=== PATIENT | female | born 1980 | race Caucasian/White ===

== ENCOUNTER 2021-02-09 08:00 | Outpatient (RCR) | payer OTHER, SELFPAY | END 2021-02-28 17:00 | disposition home or self-care (01) | LOC: PT.CARL 08:00 | PROVIDERS: Visit Provider Physician Assistant | DX: M70.61 Trochanteric bursitis, right hip (principal); G57.01 Lesion of sciatic nerve, right lower limb | CPT/HCPCS: 97010; 97012; 97014; 97033; 97110; 97140; 97163; G0283 ==

== ENCOUNTER 2025-05-08 08:41 | Outpatient (CLI) | payer OTHER, SELFPAY ==
--- OUTSIDE RECORDS SUMMARY | 2025-05-04 09:16 | XMS_ITS | Encounter Summary ---
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 Get plenty of rest over the next few days. Follow-up with primary care and schedule appointment with orthopedics for further evaluation if symptoms persist. Return to the ER with new or worsening symptoms. * Attachments The following attachments cannot be sent through Care Everywhere. * Cervical Radiculopathy Zpsi-fm-[id number] (Belgian) documented in this encounter Medications at Time of Discharge ibuprofen (MOTRIN) 600 MG tablet Take 1 [...] needed for muscle spasms. 30 tablet 05/04/2025 documented as of this encounter ED Notes [...] way to her hand. Also feels her lead furnace operator strength on the affected side has decreased. Denies any traumatic injury to the area. No numbness in the hand or fingers. History provided by: Patient interpretative dancer used: No Patient History Past Medical History: [...] 0952 Dr. Kumar: I saw the patient [id number]. I performed a substantive portion of the [...] NP Specialty: Nurse Practitioner Relationship: PCP - [place] [address] Next Steps: Schedule an appointment as soon as possible for a visit Dennys Carrera MD Specialty: Orthopedic Surgery [facility] [place] [address] Next Steps: Schedule an appointment as soon [...] discontinued) documented in this encounter Care Teams Clock Maker Relationship Specialty Start Date End Date Mehreen Ayala, ALEA [facility] [place] [address] PCP - General Nurse Practitioner 05/04/25 documented as of this encounter
--- OUTSIDE RECORDS SUMMARY | 2025-05-08 08:44 | XMS_ITS | Referral Summary ---
Author Organization [employer] ([place], [place], [place], [place]) Address [address] [place] [address] Care Team Providers Care Coffee Break Attendant Name Role Phone Mehreen Ayala NP Primary Care Provider Encounters Date Type Department Care Team Description 05/04/2025 Travel 05/04/2025 9:16 AM EDT - 05/04/2025 10:50 AM EDT Emergency [facility] Emergency Department [address] [place] [phone] Jenifer Kumar MD Neck pain (Primary Dx); Cervical radiculopathy Discharge Disposition: Home or Self Care from Last 3 Months Allergies No known active allergies Medications ibuprofen (MOTRIN) 600 MG tablet Take 1 tablet (600 mg total) by mouth every 6 (six) hours as needed for pain for up to 10 days. 40 tablet 05/04/2025 05/14/20 25 Active methocarbamoL (ROBAXIN) 500 MG tablet Take 1 tablet (500 mg total) by mouth 4 (four) times daily as needed for muscle spasms. 30 tablet 05/04/2025 Active lidocaine (LIDODERM) 5 % ptmd patch Place 1 patch on the skin daily for 30 days Remove & Discard patch within 12 hours or as directed by . 30 patch 05/04/2025 06/03/20 25 Active Social History Tobacco Use Types Packs/Day Years [...] on file Sexual Orientation Not on file Last Filed Vital Signs Vital Sign Reading [...] Mass Index 32.92 05/04/2025 9:21 AM EDT Plan of Treatment Not on file Insurance [employer] Care Teams Coffee Break Attendant Relationship Specialty Start Date End Date Mehreen Ayala, ALEA [address] [place] [address] PCP - General Nurse Practitioner 05/04/25
--- OUTSIDE RECORDS SUMMARY | 2025-05-08 08:44 | XMS_ITS | Encounter Summary ---
Author Organization [employer] ([place], [place], [place], [place]) Address [address] [place] [address] Care Team Providers Care Kier Pleater Name Role Phone Mehreen Ayala NP Primary Care Provider Encounter Details Date Type Department Care Team (Latest Contact Info) Description 05/04/2025 Travel Social History Tobacco Use Types Packs/Day Years Used Date Smoking Tobacco: Never Smokeless Tobacco: Never Alcohol Use Standard Drinks/Week Comments Never 0 (1 standard drink = 0.6 oz pur e alcohol) Comments Unknown Sex and Gender Information Value Date Recorded Sex Assigned at Not on file Legal Sex Female 5:47 PM CDT Gender Identity Not on file Sexual Orientation Not on file documented as of this encounter Plan of Treatment Not on file documented as of this encounter Visit Diagnoses Not on filedocumented in this encounter Care Teams Kier Pleater Relationship Specialty Start Date End Date Mehreen Ayala, ALEA [address] [place] [address] PCP - General Nurse Practitioner 05/04/25 documented as of this encounter
--- OUTSIDE RECORDS SUMMARY | 2025-05-08 08:44 | XMS_ITS | Clinical Summary ---
Author Organization [employer] ([place], [place], [place], [place]) Address [address] [place] [address] Care Team Providers Care Hosiery Looper Name Role Phone Mehreen Ayala NP Primary Care Provider Allergies No known active allergies Medications ibuprofen [...] . 30 patch 05/04/2025 06/03/20 25 Active Encounters Date Type Department Care Team Description 05/04/2025 9:16 AM EDT - 05/04/2025 10:50 AM EDT Emergency [facility] Emergency Department [address] [place] [phone] Jenifer Kumar MD Neck pain (Primary Dx); Cervical radiculopathy Discharge Disposition: Home or Self Care 05/04/2025 Travel from Last 3 Months Social History Tobacco Use Types Packs/Day Years [...] 05/04/2025 9:21 AM EDT Plan of Treatment Health Maintenance Due Date Last Done Comments CT Colonography 1978 Colonoscopy 1978 Colorectal Cancer Screening 1978 FOBT/FIT 1978 Fit-DNA (Cologuard) 1978 Sigmoidoscopy 1978 Depression Screening (12+) 1990 HIV Screening 1993 Hepatitis C Screening 02/10/1996 DTAP/TDAP/TD VACCINES (1 - Tdap) 1997 Pap Smear 1999 Breast Cancer Screening 2018 Lipid Panel 2023 COVID-19 VACCINE (1 - 2023-2 5 season) 2025 Influenza Vaccine (#1) 2025 Tobacco Cessation Counseling and Screening (12+) 05/04/2026 05/04/2025 Pneumococcal Vaccine: 0-49 Years Aged Out No longer eligible based on patient's age to complete this topic Insurance AET[employer] Care Teams Hosiery Looper Relationship Specialty Start Date End Date Mehreen Ayala, ALEA [address] [place] [address] PCP - General Nurse Practitioner 05/04/25
--- NOTE | 2025-05-08 08:47 | XR_ITS ---
FINAL REPORT CLINICAL HISTORY: right neck and arm pain with numbness in finger tips COMPARISON: None FINDINGS: 5 views of the cervical spine were obtained. No fracture is present. Alignment is normal. No prevertebral soft tissue swelling is seen. There is mild disc space narrowing at C5-6 and C6-7. IMPRESSION: Degenerative changes without acute bony abnormality. Reviewed, Interpreted and Dictated by Margy Vareal MD Transcribed by Neelima Agosto Authenticated and [facility]
== END 2025-05-08 23:59 | disposition home or self-care (01) ==
LOC: RAD 08:42
PROVIDERS: PCP Family Medicine; Visit Provider Family Medicine
DX: M47.812 Spondylosis without myelopathy or radiculopathy, cervical region (principal)
CPT/HCPCS: 72040

== ENCOUNTER 2025-05-22 13:31 | Outpatient (CLI) | payer OTHER, SELFPAY ==
--- OUTSIDE RECORDS SUMMARY | 2025-05-04 09:16 | XMS_ITS | Encounter Summary ---
Author Organization [employer] ([place], [place], [place], [place]) Address [address] [place] [address] Care Team Providers Care Video Game Repair Technician Name Role Phone Mehreen Ayala NP Primary Care Provider Reason for Visit * Reason Comments Neck Pain Left sided neck and arm pain pt describes as a pulled muscle or pinched nerve. Pt states she has to keep her arm above her head for pain relief. Encounter Details Date Type Department Care Team (Late st Contact Info) Description 05/04/2025 9:16 AM EDT - 05/04/2025 10:50 AM EDT Emergency [facility] Emergency Department [address] [place] [phone] Jenifer Kumar MD [address] [place] [address] Neck pain (Primary Dx); Cervical radiculopathy Discharge Disposition: Home or Self Care Social History Tobacco Use Types Packs/Day Years Used Date Smoking Tobacco: Never Smokeless Tobacco: Never Tobacco Cessation:Counseling Given: No Alcohol Use Standard Drinks/Week Comments Never 0 (1 standard drink = 0.6 oz pur e alcohol) Comments Unknown Sex and Gender Information Value Date Recorded Sex Assigned at Not on file Legal Sex Female 5:47 PM CDT Gender Identity Not on file Sexual Orientation Not on file documented as of this encounter Last Filed Vital Signs Vital Sign Reading Time Taken Comments Blood Pressure 164/82 05/04/2025 9:21 AM EDT Pulse 98 05/04/2025 9:21 AM EDT Temperature 35.7 C (96.2 F) 05/04/2025 9:21 AM EDT Respiratory Rate 16 05/04/2025 9:21 AM EDT Oxygen Saturation 98% 05/04/2025 9:23 AM EDT Inhaled Oxygen Concentration - - Weight 81.6 kg (180 lb) 05/04/2025 9:21 AM EDT Height 157.5 cm (5' 2 ) 05/04/2025 9:21 AM EDT Body Mass Index 32.92 05/04/2025 9:21 AM EDT documented in this encounter Discharge Instructions * Discharge Instructions* NIK Varags - 05/04/2025 10:30 AM EDT 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 Get plenty of rest over the next few days. Follow-up with primary care and schedule appointment with orthopedics for further evaluation if symptoms persist. Return to the ER with new or worsening symptoms. * Attachments The following attachments cannot be sent through Care Everywhere. * Cervical Radiculopathy [id number]-[id number] (Namibian) documented in this encounter Medications at Time of Discharge lidocaine (LIDODERM) 5 % ptmd patch Place 1 patch on the skin daily for 30 days Remove & Discard patch within 12 hours or as directed by MD. 30 patch 05/04/2025 06/03/2025 methocarbamoL (ROBAXIN) 500 MG tablet Take 1 tablet (500 mg total) by mouth 4 (four) times daily as needed for muscle spasms. 30 tablet 05/04/2025 ibuprofen (MOTRIN) 600 MG tablet Take 1 tablet (600 mg total) by mouth every 6 (six) hours as needed for pain for up to 10 days. 40 tablet 05/04/2025 05/14/2025 documented as of this encounter ED Notes * NIK Vargas - 05/04/2025 9:28 AM EDT Subjective Chief Complaint: Neck Pain (Left sided neck and arm pain pt describes as a pulled muscle or pinchednerve. Pt states she has to keep her arm above her head for pain relief. ) Patient is a 45-year-old female who presents with complaint of pain in the left side of her neck radiating to the shoulder and arm. States symptoms have been ongoing for the past 3 days and have continued to worsen. Says she went out of town and slept in a very uncomfortable bed. The next day she started experiencing symptoms. Says now she is only able to find relief when raising her left arm above her head. When putting the arm down in normal position she has sharp shooting pains all the way to her hand. Also feels her percussion instructor strength on the affected side has decreased. Denies any traumatic injury to the area. No numbness in the hand or fingers. History provided by: Patient package crimper used: No Patient History Past Medical History: Diagnosis Date Patient denies medical problems Past Surgical History: Procedure Laterality Date CHOLECYSTECTOMY No family history on file. Social History Tobacco Use Smoking status: Never Smokeless tobacco: Never Substance Use Topics Alcohol use: Never I reviewed the HPI, ROS and PFSH documentation recorded by others in the medical record and supplemented my note as needed. Review of Systems Review of Systems Constitutional: Negative for chills and fever. HENT: Negative for congestion, ear pain, postnasal drip, rhinorrhea, sinus pain and sore throat. Eyes: Negative for pain, redness and visual disturbance. Respiratory: Negative for cough, shortness of breath and wheezing. Cardiovascular: Negative for chest pain and palpitations. Gastrointestinal: Negative for abdominal pain, constipation, diarrhea, nausea and vomiting. Genitourinary: Negative for difficulty urinating, dysuria and hematuria. Musculoskeletal: Positive for myalgias and neck pain. Negative for arthralgias, back pain and neck stiffness. Skin: Negative for rash. Neurological: Negative for light-headedness and headaches. All other systems reviewed and are negative. Physical Exam ED Triage Vitals [05/04/25 0921] Encounter Vitals Group BP (!) 164/82 Girls Systolic BP Percentile Girls Diastolic BP Percentile Boys Systolic BP Percentile Boys Diastolic BP Percentile Pulse 98 Resp 16 Temp 96.2 ??F (35.7 ??C) Temp src Tympanic SpO2 98 % Weight 81.6 kg (180 lb) Height 1.575 m (5' 2 ) Head Circumference Peak Flow Pain Score Seven Pain Loc Pain Education Exclude from Growth Chart Physical Exam Vitals and nursing note reviewed. Constitutional: Appearance: Normal appearance. HENT: Head: Atraumatic. Nose: Nose normal. Eyes: Extraocular Movements: Extraocular movements intact. Pupils: Pupils are equal, round, and reactive to light. Neck: Comments: Spasm of the left trapezius Cardiovascular: Rate and Rhythm: Normal rate and regular rhythm. Pulses: Normal pulses. Heart sounds: Normal heart sounds. Pulmonary: Effort: Pulmonary effort is normal. Breath sounds: Normal breath sounds. Abdominal: General: Bowel sounds are normal. Palpations: Abdomen is soft. Tenderness: There is no abdominal tenderness. Musculoskeletal: General: Tenderness (left upper arm/axilla) present. Normal range of motion. Cervical back: Full passive range of motion without pain and normal range of motion. Skin: General: Skin is warm and dry. Capillary Refill: Capillary refill takes less than 2 seconds. Neurological: Mental Status: She is alert and oriented to person, place, and time. Mental status is at baseline. Cranial Nerves: No cranial nerve deficit. Sensory: No sensory deficit. Coordination: Coordination normal. Psychiatric: Mood and Affect: Mood normal. Behavior: Behavior normal. Neurological Exam Mental Status Alert. Oriented to person, place, and time. Cranial Nerves CN III, IV, : Extraocular movements intact bilaterally. Pupils equal round and reactive to light bilaterally. Ortho Exam ED Course & MDM Medications lidocaine (LIDODERM) patch 4% (1 patch transdermal Patch Applied 05/04/25 09) diazePAM (VALIUM) tablet 5 mg (5 mg oral Given 05/04/25 0953) ketorolac (TORADOL) injection 30 mg (30 mg intraMUSCULAR Given 05/04/25 0952) dexAMETHasone PF injection 10 mg (10 mg intraMUSCULAR Given 05/04/25 0952) No results found for this or any previous visit. No orders to display ED Course as of 05/04/25 1032 Mon May 04, [address] Kumar: I saw the patient [id number]. I performed a substantive portion of the MDM. My differential diagnosis includes vascular injury, nerve compression, and infection. 2+ radial pulse [KH] ED Course User Index [KH] Jenifer Kumar MD Procedures Medical Decision Making Patient presented with complaint of left-sided neck pain with radiation through the left upper extremity. No imaging indicated at this time as there is been no evidence of traumatic injury and no sign of infection. Patient given medications for symptomatic management and did report improvement of symptoms prior to discharge. Will continue to treat with medications on an outpatient basis and instructed patient to follow-up with PCP and orthopedics. She verbalized understanding and approval of plan to discharge. Risk OTC drugs. Prescription drug management. Assessment & Plan Clinical Impression Diagnosis Comment Added By Time Added Neck pain NIK Vargas 05/04/2025 10:27 AM Cervical radiculopathy NIK Vargas 05/04/2025 10:27 AM Disposition Discharge [1] - 05/04/2025 10:27 AM New Prescriptions IBUPROFEN (MOTRIN) 600 MG TABLET Take 1 tablet (600 mg total) by mouth every 6 (six) hours as needed for pain for up to 10 days. LIDOCAINE (LIDODERM) 5 % PTMD PATCH Place 1 patch on the skin daily for 30 days Remove & Discard patch within 12 hours or as directed by MD. METHOCARBAMOL (ROBAXIN) 500 MG TABLET Take 1 tablet (500 mg total) by mouth 4 (four) times daily asneeded for muscle spasms. Contact information for follow-up Mehreen Ayala NP Specialty: Nurse Practitioner Relationship: PCP - [place] [phone] Next Steps: Schedule an appointment as soon as possible for a visit Dennys Carrera MD Specialty: Orthopedic Surgery [facility] [place] [address] Next Steps: Schedule an appointment as soon as possible for a visit documented in this encounter Plan of Treatment Not on file documented as of this encounter Visit Diagnoses Diagnosis Neck pain- Primary Cervicalgia Cervical radiculopathy Brachial neuritis or radiculitis nos documented in this encounter Administered Medications Inactive Administered Medications - up to 3 most recent administrations Medication Order MAR Action Action Date Dose Rate Site dexAMETHasone PF injection 10 mg 10 mg Once, intraMUSCULAR, On Mon 25 at 0940, For 1 dose Given 05/04/2025 9:52 AM EDT 10 mg Left Deltoid diazePAM (VALIUM) tablet 5 mg 5 mg Once, oral, On Sun05/04/25 at 0940, For 1 dose Given 05/04/2025 9:53 AM EDT 5 mg ketorolac (TORADOL) injection 30 mg 30 mg Once, intraMUSCULAR, On Sun05/04/25 at 0940, For 1 dose Given 05/04/2025 9:52 AM EDT 30 mg Right Deltoid lidocaine (LIDODERM) patch 4% 1 patch Once, transdermal, Administer over 12 Hours, On Sun05/04/25 at 0940, For 1 dose Patch Applied 05/04/2025 9:52 AM EDT 1 patch documented in this encounter Active and Recently Administered Medications Times are shown in EDT. Scheduled Medication Order 05/02/2025 05/03/2025 05/04/2025 dexAMETHasone PF injection 10 mg (COMPLETED) 10 mg Once, intraMUSCULAR, On Sun05/04/25 at 0940, For 1 dose 0952 (Given - Provid er: Lourdes Sosa RN) diazePAM (VALIUM) tablet 5 mg (COMPLETED) 5 mg Once, oral, On Sun05/04/25 at 0940, For 1 dose 0953 (Given - Provid er: Lourdes Sosa RN) ketorolac (TORADOL) injection 30 mg (COMPLETED) 30 mg Once, intraMUSCULAR, On Sun05/04/25 at 0940, For 1 dose 0952 (Given - Provid er: Lourdes Sosa RN) lidocaine (LIDODERM) patch 4% 1 patch Once, transdermal, Administer over 12 Hours, On Sun05/04/25 at 0940, For 1 dose 0952 (Patch Applied - Provider: Lourdes Sosa RN)1050 (Due: Patch Removed - Provider: Automatic Discharge Provider - Comment: Time automatically adjusted from order being discontinued) documented in this encounter Care Teams Video Game Repair Technician Relationship Specialty Start Date End Date Mehreen Aayla, ALEA [facility] [place] [address] PCP - General Nurse Practitioner 05/04/25 documented as of this encounter
--- OUTSIDE RECORDS SUMMARY | 2025-05-22 13:34 | XMS_ITS | Encounter Summary ---
Author Organization [employer] ([place], [place], [place], [place]) Address [address] [place] [address] Care Team Providers Care Engineering Inspector Name Role Phone Mehreen Ayala NP Primary [...] on filedocumented in this encounter Care Teams Engineering Inspector Relationship Specialty Start Date End Date Mehreen Ayala, ALEA [address] [place] [address] PCP - General Nurse Practitioner 05/04/25 documented as of this encounter
--- OUTSIDE RECORDS SUMMARY | 2025-05-22 13:34 | XMS_ITS | Referral Summary ---
Author Organization [employer] ([place], [place], [place], [place]) Address [address] [place] [address] Care Team Providers Care Axminster Weaver Name Role Phone Mehreen Ayala NP Primary Care Provider Encounters Date Type Department Care Team Description 05/04/2025 Travel 05/04/2025 9:16 AM EDT - 05/04/2025 10:50 AM EDT Emergency [facility] Emergency Department [address] [place] [phone] Jenifer Kumar MD Neck pain (Primary Dx); Cervical radiculopathy Discharge Disposition: Home or Self Care from Last 3 Months Allergies No known active allergies Medications methocarbamoL (ROBAXIN) 500 MG tablet Take 1 tablet (500 mg total) by mouth 4 (four) times daily as needed for muscle spasms. 30 tablet 5 Active lidocaine (LIDODERM) 5 % ptmd patch Place 1 patch on the skin daily for 30 days Remove & Discard patch within 12 hours or as directed by . 30 patch 5 06/03/20 25 Active ibuprofen (MOTRIN) 600 MG tablet Take 1 tablet (600 mg total) by mouth every 6 (six) hours as needed for pain for up to 10 days. 40 tablet 5 05/14/20 25 Social History Tobacco Use Types Packs/Day Years [...] Not on file Insurance [employer] Care Teams Axminster Weaver Relationship Specialty Start Date End Date Mehreen Ayala, ALEA [address] [place] [address] PCP - General Nurse Practitioner 05/04/25
--- OUTSIDE RECORDS SUMMARY | 2025-05-22 13:35 | XMS_ITS | Clinical Summary ---
Author Organization [employer] ([place], [place], [place], [place]) Address [address] [place] [address] Care Team Providers Care Gem Cutter Name Role Phone Mehreen Ayala NP Primary Care Provider Allergies No known active allergies Medications methocarbamoL (ROBAXIN) 500 MG tablet Take 1 tablet (500 mg total) by mouth 4 (four) times daily as needed for muscle spasms. 30 tablet 5 Active lidocaine (LIDODERM) 5 % ptmd patch Place 1 patch on the skin daily for 30 days Remove & Discard patch within 12 hours or as directed by MD. 30 patch 5 06/03/20 25 Active ibuprofen (MOTRIN) 600 MG tablet Take 1 tablet (600 mg total) by mouth every 6 (six) hours as needed for pain for up to 10 days. 40 tablet 5 05/14/20 25 Encounters Date Type Department Care Team Description 05/04/2025 9:16 AM EDT - 05/04/2025 10:50 AM EDT Emergency [facility] Emergency Department [address] [place] [phone] Jenifer Kumar MD Neck pain (Primary Dx); [...] complete this topic Insurance [employer] Care Teams Gem Cutter Relationship Specialty Start Date End Date Mehreen Ayala, ALEA [address] [place] [address] PCP - General Nurse Practitioner 05/04/25
--- NOTE | 2025-05-22 13:45 | MR_ITS ---
FINAL REPORT TECHNIQUE: Multiplanar and multisequence imaging of the cervical spine was obtained before and after the administration of intravenous contrast. CLINICAL HISTORY: Neck pain with left arm pain, numbness, and tingling 3 weeks COMPARISON: None FINDINGS: There is normal alignment of the cervical vertebral bodies. Vertebral body height is preserved. Bone marrow signal intensity is normal. There is no edema or pathologic marrow replacement. The signal intensity within the substance of the spinal cord is normal. There is no paraspinal mass or fluid collection. There is no abnormal bone marrow enhancement and no abnormal cord enhancement. C2-C3: There is no focal disc herniation, central stenosis or neural foraminal narrowing. C3-C4: There is no focal disc herniation, central stenosis or neural foraminal narrowing. C4-C5: There is a central protrusion with mild mass effect upon the anterior thecal sac. Mild central stenosis. No foraminal narrowing. C5-C6: There is a right paracentral protrusion per imposed on an annular disc bulge. There are degenerative endplate changes. There is facet osteoarthropathy. No central stenosis. Mild bilateral foraminal narrowing. C6-C7: There is a large central and left paracentral disc protrusion. There is mild to moderate central stenosis with severe left foraminal narrowing. There is contact with the exiting left nerve root. C7-T1: There is no focal disc herniation, central stenosis or neural foraminal narrowing. Postcontrast images reveal no pathologic contrast enhancement. IMPRESSION: Large central and left paracentral disc protrusion at C6-7 with central and severe left foraminal stenosis. Central protrusion at C4-5. Right paracentral protrusion at C5-6. Reviewed, Interpreted and Dictated by Aleisha Vivas MD Transcribed by Daisy Gipson Authenticated and . [facility]
[2025-05-22] MEDS: GADOTERIDOL INJ 20ML SYRINGE 16 ML IV (14:20)
== END 2025-05-22 23:59 | disposition home or self-care (01) ==
LOC: RAD 13:32
PROVIDERS: PCP Nurse Practitioner Family; Visit Provider Nurse Practitioner Family
DX: M50.221 Other cervical disc displacement at C4-C5 level (principal); M50.222 Other cervical disc displacement at C5-C6 level; M50.223 Other cervical disc displacement at C6-C7 level; M48.02 Spinal stenosis, cervical region
CPT/HCPCS: 72156; A9576

== ENCOUNTER 2025-06-08 08:20 | Outpatient (CLI) | payer OTHER, SELFPAY ==
--- OUTSIDE RECORDS SUMMARY | 2025-05-04 09:16 | XMS_ITS | Encounter Summary ---
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 Get plenty of rest over the next few days. Follow-up with primary care and schedule appointment with orthopedics for further evaluation if symptoms persist. Return to the ER with new or worsening symptoms. * Attachments The following attachments cannot be sent through Care Everywhere. * Cervical Radiculopathy [id number] (Maltese) documented in this encounter Medications at Time of Discharge methocarbamoL (ROBAXIN) 500 MG tablet Take 1 tablet (500 mg total) by mouth 4 (four) times daily as needed for muscle spasms. 30 tablet 05/04/2025 ibuprofen (MOTRIN) 600 MG tablet Take 1 tablet (600 mg total) by mouth every 6 (six) hours as needed for pain for up to 10 days. 40 tablet 05/04/2025 05/14/2025 lidocaine (LIDODERM) 5 % ptmd patch Place 1 patch on the skin daily for 30 days Remove & Discard patch within 12 hours or as directed by MD. 30 patch 05/04/2025 06/03/2025 documented as of this encounter ED Notes [...] way to her hand. Also feels her asbestos wire finisher strength on the affected side has decreased. Denies any traumatic injury to the area. No numbness in the hand or fingers. History provided by: Patient loss prevention officer used: No Patient History Past Medical History: [...] 0952 Dr. Kumar: I saw the patient [id number]. I performed a substantive portion of the [...] NP Specialty: Nurse Practitioner Relationship: PCP - [place] [address] Next Steps: Schedule an appointment as soon as possible for a visit Dennys Carrera MD Specialty: Orthopedic Surgery [facility] [place] [address] Next Steps: Schedule an appointment as soon [...] discontinued) documented in this encounter Care Teams Creative Consultant Relationship Specialty Start Date End Date Mehreen Ayala, [place] [address] PCP - General Nurse Practitioner 05/04/25 documented as of this encounter
--- NOTE | 2025-06-08 08:30 | MM_ITS ---
PROCEDURE INFORMATION: Exam: MG Bilateral Screening 3D Mammography Exam date and time: 06/08/2025 8:31 AM Age: 45 years old Clinical indication: Screening exam. TECHNIQUE: Imaging protocol: Bilateral Screening tomosynthesis and 2D mammography including computer-aided detection (CAD) when performed. COMPARISON: No relevant prior studies available. FINDINGS: MAMMOGRAPHY: Breast composition: The breasts are heterogeneously dense, which may obscure small masses. Mass: No suspicious masses. Architectural distortion: None. Calcifications: No suspicious calcifications. Asymmetric density: None. Skin thickening: None. Axillary adenopathy: None. IMPRESSION: No mammographic evidence of malignancy. Annual screening is recommended unless otherwise clinically indicated. ASSESSMENT: BI-RADS Category 1: Negative.
--- OUTSIDE RECORDS SUMMARY | 2025-06-08 08:32 | XMS_ITS | Encounter Summary ---
Author Organization [employer] ([place], [place], [place], [place]) Address [address] [place] [address] Care Team Providers Care Drier Helper Name Role Phone Mehreen Ayala NP Primary [...] on filedocumented in this encounter Care Teams Drier Helper Relationship Specialty Start Date End Date Mehreen Ayala, ALEA [address] [place] [address] PCP - General Nurse Practitioner 05/04/25 documented as of this encounter
--- OUTSIDE RECORDS SUMMARY | 2025-06-08 08:32 | XMS_ITS | Referral Summary ---
Author Organization [employer] ([place], [place], [place], [place]) Address [address] [place] [address] Care Team Providers Care Tray Drier Operator Name Role Phone Mehreen Ayala NP Primary Care Provider Encounters Date Type Department Care Team Description 05/04/2025 Travel 05/04/2025 9:16 AM EDT - 05/04/2025 10:50 AM EDT Emergency [facility] Emergency Department [address] [place] [phone] Jenifer Kumar MD Neck pain (Primary Dx); Cervical radiculopathy Discharge Disposition: Home or Self Care from Last 3 Months Allergies No known active allergies Medications methocarbamoL (ROBAXIN) 500 MG tablet Take 1 tablet (500 mg total) by mouth 4 (four) times daily as needed for muscle spasms. 30 tablet 5 Active ibuprofen (MOTRIN) 600 MG tablet Take 1 tablet (600 mg total) by mouth every 6 (six) hours as needed for pain for up to 10 days. 40 tablet 5 05/14/20 25 lidocaine (LIDODERM) 5 % ptmd patch Place 1 patch on the skin daily for 30 days Remove & Discard patch within 12 hours or as directed by . 30 patch 5 06/03/20 25 Social History Tobacco Use Types Packs/Day [...] Not on file Insurance [employer] Care Teams Tray Drier Operator Relationship Specialty Start Date End Date Mehreen Ayala, ALEA [address] [place] [address] PCP - General Nurse Practitioner 05/04/25
--- OUTSIDE RECORDS SUMMARY | 2025-06-08 08:34 | XMS_ITS | Clinical Summary ---
Author Organization [employer] ([place], [place], [place], [place]) Address [address] [place] [address] Care Team Providers Care Contract Clerk Automobile Name Role Phone Mehreen Ayala NP Primary [...] by . 30 patch 5 06/03/20 25 Encounters Date Type Department Care Team Description 05/04/2025 9:16 AM EDT - 05/04/2025 10:50 AM EDT Emergency [facility] Emergency Department [address] [place] [phone] Jenifer Kumar MD Neck pain (Primary Dx); [...] complete this topic Insurance [employer] Care Teams Contract Clerk Automobile Relationship Specialty Start Date End Date Mehreen Ayala, ALEA [address] [place] [address] PCP - General Nurse Practitioner 05/04/25
== END 2025-06-08 23:59 | disposition home or self-care (01) ==
LOC: RAD 08:21
PROVIDERS: PCP Nurse Practitioner Family; Visit Provider Nurse Practitioner Family
DX: Z12.31 Encounter for screening mammogram for malignant neoplasm of breast (principal); R92.333 Mammographic heterogeneous density, bilateral breasts
CPT/HCPCS: 77063; 77067

== ENCOUNTER 2025-06-09 07:00 | Outpatient (RCR) | payer OTHER, SELFPAY ==
--- NOTE | 2025-05-21 08:56 | HMH.PTOPEV ---
PT Evaluation Rehab PT Outpatient Evaluation Start: 05/21/25 07:55 Freq: Status: Active Protocol: Document 05/21/25 07:55 [email or web address] (Rec: 05/21/25 08:55 [email or web address] [id number]) E-signed By Tonny Rowe, PT Outpatient Therapy Subjective History Subjective History Pt. is a 45 year old female who presents to [facility] Outpatient Physical Therapy Services in [place] for the PT outpatient initial evaluation this date(10/14) w/ c/o acute and constant cervical spine and L UE P!, numbness, and stiffness of non-traumatic onset 3 weeks ago. Pt. reports she went on a trip and slept in a bed with terrible pillows as her GARY. Pt. reports the stiffness in the cervical spine is the worse in the a.m. getting out of bed. Pt. also c/o constant numbness in L UE 1st/2nd/3rd digits. Pt. 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 Pt. reports sitting and driving, sitting and looking down at her laptop or phone, and sleeping on her L side worsen symptom complaint. Pt. reports the only symptom relief she gets is when she lifts her L UE over her head. Pt. reports going to the [facility] 3 wks. ago w/ symptom onset where she was prescribed a muscle relaxer and got a steroid shot. Pt. reports having no symptom relief so she went to her PCP where she was prescribed x5 days of Prednisone and another muscle relaxer where she stated not really when Physical Therapist prompted pt. on symptom relief. Pt. reports having a radiograph of the cervical spine at the E.R[facility] which indicated WNL per pt. report. Pt. reports she is scheduled to have an MRI tomorrow(05/22/25) of the cervical spine. Pt. reports per MD at the [facility] and Family Doctor she has a pinched nerve in the neck. Pt. reports she has been seeing her Chiropractor everyday since symptom onset where she vocalizes having 1-3 hours of symptom relief following adjustments and manual techniques including massage and cervical distraction. Pt. RTMD after having the MRI. Current medications include prescribed muscle relaxer and Prednisone for current complaint of symptoms. PMH includes Cholecystectomy, broken my left arm three times, Scoliosis, and S/P L UE wrist ATS. New diagnosis of No cancer in past 12 months? Chief Complaint Pain,Spasms,Stiff,Paresthesia,Weakness,Decreased Garment Cutter Strength Symptom Type Ache,Throb,Stabbing,Numbness,Tingling,Shooting Symptoms Relieved By Rest/Positioning,Ice,Prescription Meds Symptoms Aggravated Sitting,Bending/Stooping,Physical Activity,Twisting, By Lifting Prior Functional None Limitations Current Functional Lifting,Desk Work/Reading,Driving,Sleeping,Sitting, Limitations Recreation Activity Symptom Description Constant and Continuous,Activity Dependent Level of pain today 5 (0-10) Pain scale - at its 3 best (0-10) Pain scale - at its 8 worst (0-10) Cervical Eval Palpation Cervical Muscles L Cervical Paraspinal,L CT Junction,L Upper Trapezius Posture Head/C-Spine Posture Flexed Sitting Position Head/C-Spine Posture Flexed Standing Position Flexibility Deficits Upper Trapezius (L) Severe Tightness Muscle Length Levaetor Scapulae (L) Severe Tightness Muscle Length Pectoralis Major (L) Severe Tightness Muscle Length Pectoralis Minor (L) Severe Tightness Muscle Length Passive Joint Mobility Cervical PIVM Dec: R C3/4 L C3/4 R C4/5 L C4/5 R C6/7 L C6/7 R C7/T1 L C7/T1 WNL: R OA L OA R AA L AA R C2/3 L C2/3 R C5/6 L C5/6 AROM Cervical Spine 43 Extension Active Range of Motion ( degrees) Cervical Spine 45 Flexion Active Range of Motion (degrees) Cervical Spine Right 23 Lateral Flexion Active Range of Motion (degrees) Cervical Spine Left 45 Lateral Flexion Active Range of Motion (degrees) Cervical Spine Right 47 Rotation Active Range of Motion ( degrees) Cervical Spine Left 45 Rotation Active Range of Motion ( degrees) MMT Left Deltoid (C5) 3+ Fair+ Biceps Brachii 4+ Good+ Strength Grade Wrist Extension 4 Good Strength Grade Triceps Brachii 3+ Fair+ Strength Grade Wrist Flexion 4 Good Strength Grade Extensor Pollicis 3+ Fair+ Longus Strength Grade Finger Abduction 3+ Fair+ Strength Grade Altered Sensation Bilateral Upper extremity C5,C6,C7 Dermatomes Comment pt. vocalized diminished light touch sensation of L UE compared to R UE Special Test C-Spine Foraminal Positive Left Compression ( [place]) Test C-spine Verterbral Central P/A [place],Left P/A [place] Accessory Movements that Elicit Symptoms C-Spine Foraminal Positive Distraction Test C-Spine Compression Positive Left Test Neck Disability Index Neck Disability Index Section 1: Pain The pain is very severe at the moment Intensity Section 2: Personal I need some help but can manage most of my personal Care (washing, care dressing, etc.) Section 3: Lifting I can only lift very light weights Section 4: Reading I can't read as much as I want because of moderate pain in my neck Section 5: Headaches I have moderate headaches, which come infrequently Section 6: I have a fair degree of difficulty in concentrating Concentration when I want to Section 7: Work I cannot do my usual work Section 8: Driving I can hardly drive at all because of severe pain in my neck Section 9: Sleeping My sleep is completely disturbed (5-7 hrs sleepless) Section 10: I can hardly do any recreation activities because of Recreation pain in my neck NDI Score 34 Outpatient Therapy Assessment Impairments Problems/ Palpation Tenderness,Impaired Range of Motion,Impaired Impairmments Strength,Impaired Endurance,Impaired Sitting,Impaired Driving,Impaired Lifting,Impaired Household Care, Impaired Bending,Impaired Recreational Activities, Impaired Work Activities,Impaired Desk/Computer Activities,Subjective C/O Pain,Impaired Self Care/Self Management Prognosis Rehab Potential Good Comment w/ HEP compliancy Clinical Impression Consistent with Yes Diagnosis Consistent with Cervical Radiculopathy, L PT Patient Goals PT Patient Goals PT Short Term STG#1.) Pt. will subjectively vocalize comparable P! a Patient Goals 5/10 @ worse in 2 wks. for improved QOL. STG#2.) Pt. will exhibit grade 2 +TTP to L upper trap. mm. in 2 wks. for improved sleep on her L side in bed. STG#3.) Pt. will demonstrate independency w/ initial HEP in 2 wks. for improved prognosis w/ Physical Therapy. PT Data Virtualization Consultant Patient LTG#1.) Pt. will exhibit grade 1 +TTP to L upper trap. Goals mm in 6-8 wks. to return to sleeping on her L side w/o difficulty. LTG#2.) Pt. will exhibit 4+/5 to L UE abd. MMT scores in 6-8 wks. to return to lifting laundry basket w/o difficulty. LTG#3.) Pt. will exhibit 45 degrees of cervical flexion ROM w/o P! in 6-8 wks. to return to working on her laptop for work w/o difficulty. LTG#4.) Pt. will demonstrate independency w/ advanced HEP in 6-8 wks. for optimal prognosis w/ Physical Therapy. LTG#5.) Pt. will exhibit a 10 degree improvement in R- sided cervical spine lateral flexion in 6-8 wks. to return looking over her R shoulder to pull out of her driveway safely. Outpatient Therapy Plan of Care Treatment Plan May Include Therapeutic Exercise Yes Including Home Exercise Program Manual Therapy Yes Techniques Neuromuscular Re- Yes education Therapeutic Yes Activities to Return to Previous Functional/Work Level ADL/Self Care Yes Education Mechanical Traction Yes Dry Needling Yes Thermal Modalities Yes Electrical Yes Stimulation Ultrasound/ Yes Phonophoresis Vasopneumatic Yes Compression Pump Massage Yes Eval/Re-Eval Yes Frequency Times per week 2 Duration Number of Weeks 6-8 Addendums This patient is a No candidate for social or vocational rehab ? Patient/Guardian Yes verbally acknowledges understanding of treatment program and consents to further treatment? Patient/Guardian Yes verbally acknowledges understanding of diagnosis, prognosis and goals for treatment? Eval Complexity PT Charges 15006 - Low Complexity Shoulder/Elbow Eval Shoulder Objective Measurements Elbow Objective Measurements PHYSICIAN CERTIFICATION: I certify the specified therapy services for Yuliana Chua are required, authorized, and reviewed every 30 days.
== END 2025-06-09 23:59 | disposition home or self-care (01) ==
LOC: PT.CARL 07:00
PROVIDERS: Visit Provider Nurse Practitioner Family
DX: M54.2 Cervicalgia (principal)
CPT/HCPCS: 97012; 97032; 97110; 97140; 97161